=== PATIENT | male | born 1975 | race Caucasian/White ===

== ENCOUNTER 2021-01-15 13:34 | Outpatient (CLI) | payer OTHER | END 2021-01-15 13:35 | disposition home or self-care (01) | LOC: LAB.S 13:34 | PROVIDERS: ATTEND Nurse Practitioner Family | DX: E02 Subclinical iodine-deficiency hypothyroidism (principal) | CPT/HCPCS: 36415; 84481 ==

== ENCOUNTER 2021-11-19 15:18 | Outpatient (CLI) | payer OTHER ==
[2021-11-19 20:17] LABS: THYROID STIMULATING HORMONE 2.6 uIU/mL (0.34-5.60)
== END 2021-11-19 15:19 | disposition home or self-care (01) ==
LOC: LAB.S 15:18
PROVIDERS: ATTEND Nurse Practitioner Family
DX: E03.9 Hypothyroidism, unspecified (principal)
CPT/HCPCS: 36415; 84443

== ENCOUNTER 2023-07-27 12:44 | Outpatient (CLI) | payer OTHER ==
--- NOTE | 2023-07-27 15:25 | XRAY Report ---
PROCEDURE: Elbow 3+V LT INDICATIONS: LEFT ELBOW PAIN TECHNIQUE: 3 views of the elbow were acquired. COMPARISON: None. FINDINGS: Bones: No displaced fracture or dislocation. Soft tissues: No significant effusion. No suspicious calcifications. IMPRESSION: No acute radiographic abnormality. No significant joint effusion. If there is high concern for further derangement, consider MRI evaluation. Reviewed by: Manuel Gallo MD on 07/27/2023 3:24 PM [facility] Approved by: Manuel Gallo MD on 07/27/2023 3:24 PM [facility] Station ID: [id number]
--- NOTE | 2023-07-27 15:27 | XRAY Report ---
PROCEDURE: Foot 3+V RT INDICATIONS: PAIN IN TOE OF RIGHT FOOT TECHNIQUE: 3 views of the foot were acquired. COMPARISON: None. FINDINGS: Bones: Focal moderate degenerative changes of the first MTP, out of proportion to degenerative morrow es elsewhere. No displaced fracture or dislocation. There are tiny subchondral lucencies. Soft tissues: No suspicious calcifications. IMPRESSION: Focal moderate degenerative changes of the first MTP. Tiny subchondral lucencies likely representing geodes. This is likely due to osteoarthritis, although prior inflammatory or crystal arthropathy is p ossible. Reviewed by: Manuel Gallo MD on 07/27/2023 3:26 PM PST Approved by: Manuel Gallo MD on 07/27/2023 3:26 PM PST Station ID: [id number]
== END 2023-07-27 12:45 | disposition home or self-care (01) ==
LOC: DI.S 12:44
PROVIDERS: ATTEND Registered Nurse
DX: M25.522 Pain in left elbow (principal); M19.071 Primary osteoarthritis, right ankle and foot